=== PATIENT | male | born 1970 | race African-American/Black ===

== ENCOUNTER 2020-05-30 15:59 | Emergency (ER) | payer BC ==
[2020-05-30] MEDS ORDERED: Cyclobenzaprine 10 MG Tab ONE (17:00)
[2020-05-30] MEDS ORDERED: Ketorolac 60 MG/2 ML SDV IM ONE (17:19)
[2020-05-30] MEDS ORDERED: Ketorolac 60 MG/2 ML SDV ONE (17:21)
--- NOTE | 2020-05-30 19:02 | ER ---
REASON FOR EMERGENCY ROOM VISIT: Left lower back and flank pain. HISTORY: This previously healthy 50-year-old man comes in with pain to the left of the midline in his lower and mid back area. He states that 2 days ago it started coming on gradually and was not associated with any strenuous work or trauma. The pain did not sound like it was colicky in nature, rather it progressively increased over the next 2 days until this afternoon when he decided to come in for evaluation. He denies any urinary symptoms and has not had any hematuria. He has no prior history of genitourinary problems at all including kidney stones. He denies any GI symptoms such as nausea, vomiting, or diarrhea or abdominal pain. He has not had any fever or chills. He states that the pain does not radiate down to his buttocks or legs. He has not had any problems with urinary incontinence. PAST MEDICAL HISTORY: He states he had a panic attack 1 time, otherwise unremarkable. MEDICATIONS: None. ALLERGIES: NONE. REVIEW OF SYSTEMS: Pertinent positives and negatives as listed in the HPI. PHYSICAL EXAMINATION: GENERAL: Reveals a pleasant man who is uncomfortable but otherwise in no acute distress. VITAL SIGNS: He is afebrile. Heart rate is 71, blood pressure 132/84, respirations 16, O2 sats 95%. HEENT: No scleral icterus or conjunctivitis. NECK: Supple. Nontender. No adenopathy is noted. CHEST: Clear to auscultation with good air exchange bilaterally and no wheezes, rhonchi, or rales. CARDIAC: Regular rate without murmur. ABDOMEN: Soft and nontender. He has minimal tenderness to deep palpation in his lower left flank area but no guarding or rebound. No percussion tenderness. There is no palpable mass or hepatosplenomegaly. BACK: He has no CVA tenderness. He does have some paraspinal tenderness to direct palpation over his lower paraspinal muscle areas. This is rather diffuse. There is no trigger point identified. There is no tenderness to palpation over the spinous processes or to percussion. Straight leg raising was negative. NEUROLOGIC: His muscle strength, bulk and tone is symmetrical, bilaterally in the upper and lower extremities. Cranial nerves 2 through 12 are intact. Deep tendon reflexes are symmetrical in both lower extremities. Sensation is normal to crude touch. SKIN: No rashes. LABORATORY DATA: CBC shows a borderline elevation of white count of 11,300. His hemoglobin is normal at 14.6. His urinalysis is unremarkable with 0 to 5 wbc's per high-powered field and no hematuria. His CMP is within normal limits. We went ahead and got a CT scan of his abdomen and pelvis using renal stone protocol. There was no evidence of renal calculus or ureteral calculus or hydronephrosis. There was, however, what appears to be some left perirenal cyst. He has some increased bladder wall thickening, but that was nonspecific. IMPRESSION: Lower back pain. PLAN: This is probably in all likelihood garden-variety low back pain with some paraspinal muscle spasm. We went ahead and gave him 1 shot of Toradol 60 mg IM, and gave him a prescription for Flexeril 10 mg dispensed #15, one q.8 hours p.r.n. He was advised of his cause, he should exercise caution because of the potential for drowsiness. I instructed him regarding stretching exercises and informed him of the natural history of these sorts of things. He probably is uncomfortable enough to justify missing work tomorrow, I think hopefully he will be able to return to work on the following day. Because of the findings of cyst involving his left kidney and the bladder wall thickening. I thought it was sensible for him to arrange a followup for him to be seen by a provider in the clinic. I think a repeat urinalysis would be worthwhile depending on how he is doing. I instructed him to make sure that the provider review the CT scan with him yet again, even though the patient was informed of the findings. He understands and agrees with this plan. All questions were answered. ROSALIO /[id number]
--- NOTE | 2020-06-01 08:43 | CT ---
Date of Service: 05/30/20 Clinical Data: flank pain UNENHANCED ABDOMEN AND PELVIC CT: Multislice acquisition through the abdomen and pelvis without IV or oral contrast was performed. No priors. There are linear densities in the left lung base consistent with linear atelectasis or fibrosis. The lung bases are otherwise clear. The heart size is normal. The unenhanced liver appears normal. No focal hepatic lesions. The gallbladder appears normal. The spleen appears normal. The pancreas appears normal. The right and left adrenals appear normal. No nephrocalcinosis or nephrolithiasis. There is a 3.1 cm fluid density structure in the left renal pelvis most likely representing a parapelvic cyst. No hydronephrosis or hydroureter. No evidence of ureteral calculi. The bladder is partially fluid filled. There is diffuse bladder wall thickening. This is probably related to nondistention. Cystitis should be considered. The appendix is not dilated. No evidence of appendicitis. No free air. No free fluid. No dilated loops of bowel. No adenopathy. No aortic aneurysm. There is a small umbilical hernia containing fat. There are small fat- containing inguinal hernias bilaterally. There is a partial compression fracture of the T12 vertebra. Age indeterminate. There is mild degenerative disk disease at multiple levels in the lower thoracic and lumbar spine. No other significant findings. [id number] [facility]
== END 2020-05-30 17:35 | disposition home or self-care (01) ==
LOC: LB.ED 15:59
DX: M54.5 Low back pain (principal)
CPT/HCPCS: 36415; 74176; 80053; 81001; 85025; 96372; 99284; A9270; J1885; 99283

== ENCOUNTER 2021-09-07 18:21 | Emergency (ER) | payer SELFPAY ==
[2021-09-07] MEDS: Ketorolac 60 MG/2 ML SDV IM ONE (18:45)
[2021-09-07] MEDS ORDERED: traMADol 50 MG Tab ONE (18:50)
== END 2021-09-07 18:53 | disposition home or self-care (01) ==
LOC: LB.ED 18:21
DX: M25.561 Pain in right knee (principal); Z88.8 Allergy status to other drugs, medicaments and biological substances
CPT/HCPCS: 96372; 99281; 99283; A9270-GY; J1885

== ENCOUNTER 2022-12-20 14:27 | Emergency (ER) | payer SELFPAY ==
[2022-12-20] MEDS ORDERED: HYDROmorphone 2 MG/ML Syringe IM ONE (14:50)
[2022-12-20] MEDS ORDERED: Acetaminophen/oxyCODONE 325-5 MG Tab ONE (16:00)
[2022-12-20] MEDS ORDERED: Cephalexin 500 MG Cap ONE (16:00)
[2022-12-20] MEDS ORDERED: Ondansetron 4 MG Tab.DIS ONE (16:00)
== END 2022-12-20 16:09 | disposition home or self-care (01) ==
LOC: LB.ED 14:27
DX: S68.625A Partial traumatic transphalangeal amputation of left ring finger, initial encounter (principal); Z88.4 Allergy status to anesthetic agent; W23.0XXA Caught, crushed, jammed, or pinched between moving objects, initial encounter
CPT/HCPCS: 73140-F3; 96372; 99283; A9270-GY; J1170; Q0162

== ENCOUNTER 2022-12-22 09:26 | Emergency (ER) | payer SELFPAY ==
[2022-12-22] MEDS ORDERED: HYDROmorphone 2 MG/ML Syringe ONE (10:16)
[2022-12-22] MEDS ORDERED: Ondansetron 4 MG/2 ML SDV ONE (10:17)
[2022-12-22] MEDS ORDERED: Ibuprofen 800 MG Tab ONE (10:17)
[2022-12-22] MEDS: HYDROmorphone 2 MG/ML Syringe IM ONE ×3 (10:20→10:52)
[2022-12-22] MEDS ORDERED: Ibuprofen 800 MG Tab PO ONE (10:21)
[2022-12-22] MEDS: Ondansetron 4 MG/2 ML SDV IVPUSH ONE ×2 (10:23→10:44)
[2022-12-22] MEDS: HYDROmorphone 2 MG/ML Syringe IVPUSH ONE ×2 (10:24→10:44)
[2022-12-22] MEDS ORDERED: Ondansetron 4 MG/2 ML SDV IM ONE (10:46)
[2022-12-22] MEDS ORDERED: HYDROmorphone 2 MG/ML Syringe IM ONE (11:12)
[2022-12-22] MEDS ORDERED: Acetaminophen/oxyCODONE 325-5 MG Tab ONE (11:45)
== END 2022-12-22 12:05 | disposition home or self-care (01) ==
LOC: LB.ED 09:26
DX: S68.113A Complete traumatic metacarpophalangeal amputation of left middle finger, initial encounter (principal); S67.193A Crushing injury of left middle finger, initial encounter; Z88.4 Allergy status to anesthetic agent; W20.8XXA Other cause of strike by thrown, projected or falling object, initial encounter
CPT/HCPCS: 96372; 99283; A9270; J1170; J2405

== ENCOUNTER 2023-10-08 08:58 | Emergency (ER) | payer MEDICAID ==
[2023-10-08 09:59] LABS: APPEARANCE,URINE CLEAR (CLEAR); BILIRUBIN,URINE NEGATIVE (NEGATIVE); COLOR,URINE YELLOW; GLUCOSE,URINE NEGATIVE (NEGATIVE); KETONES,URINE NEGATIVE (NEGATIVE); LEUKOCYTE ESTERASE,URINE NEGATIVE (NEGATIVE); NITRITE,URINE NEGATIVE (NEGATIVE); OCCULT BLOOD,URINE NEGATIVE (NEGATIVE); PROTEIN,URINE NEGATIVE (NEGATIVE); UROBILINOGEN,URINE 0.2 E.U./dL (0.2-1.0)
[2023-10-08 10:02] LABS: RBC,URINE NOT SEEN /HPF; WBC,URINE 0-5 /HPF
== END 2023-10-08 10:16 | disposition home or self-care (01) ==
LOC: LB.ED 08:58
DX: K64.4 Residual hemorrhoidal skin tags (principal); R33.9 Retention of urine, unspecified; Z91.041 Radiographic dye allergy status; Z79.899 Other long term (current) drug therapy
CPT/HCPCS: 81001; 99284

== ENCOUNTER 2023-11-07 11:15 | Day surgery (SDC) | payer MEDICAID ==
[2023-11-07] MEDS: Sodium Chloride 0.9% 1,000 ML IV SCH (11:42)
[2023-11-07] MEDS ORDERED: Propofol 1,000 MG/100 ML SDV ONE (12:00)
[2023-11-07] MEDS: Metoclopramide 10 MG/2 ML SDV IV PRN (12:30)
== END 2023-11-07 13:45 | disposition home or self-care (01) ==
LOC: LB.SDS 11:15
PROVIDERS: ATTEND Surgery
DX: R19.4 Change in bowel habit (principal); R63.4 Abnormal weight loss
CPT/HCPCS: 45378; J2704; J2765; J7030